=== PATIENT | female | born 1965 | race Two or more races ===

== ENCOUNTER 2019-02-04 07:00 | Day surgery (SDC) | payer OTHER | END 2019-02-04 10:40 | disposition home or self-care (01) | LOC: AMB-ENDOS 07:00 | DX: D12.3 Benign neoplasm of transverse colon (principal); D12.8 Benign neoplasm of rectum; K64.1 Second degree hemorrhoids ==

== ENCOUNTER 2020-03-16 08:54 | Day surgery (SDC) | payer OTHER | END 2020-03-16 15:00 | disposition home or self-care (01) | LOC: AMB-ENDOS 08:54 | PROVIDERS: ATTEND Colon & Rectal Surgery | DX: K63.5 Polyp of colon (principal); K64.1 Second degree hemorrhoids; Z20.828 Contact with and (suspected) exposure to other viral communicable diseases ==